=== PATIENT | male | born 1995 | race Two or more races ===

== ENCOUNTER 2024-02-16 14:26 | Observation (INO) ==
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
[2024-02-16 16:15] LABS: Basophils # (auto) 0.02 K/uL (0.00-0.20); Basophils % (auto) 0.4 %; Eosinophils # (auto) 0.18 K/uL (0.00-0.50); Eosinophils % (auto) 3.6 %; Hematocrit (blood only) 43.2 % (42.0-52.0); Hemoglobin 14.3 g/dl (14.0-18.0); Immature Granulocytes # (auto) 0.01 K/uL (0.01-0.20); Immature Granulocytes % (auto) 0.2 %; Lymphocytes # (auto) 1.57 K/uL (1.20-3.40); Lymphocytes % (auto) 31.3 %; Mean Corpuscular Hemoglobin 26.9 pg (25.0-34.0); Mean Corpuscular Hgb Conc 33.1 g/dL (32.0-36.0); Mean Corpuscular Volume 81.4 fL (80.0-100.0); Mean Platelet Volume 9.2 fL (9.4-12.4); Monocytes # (auto) 0.24 K/uL (0.11-0.59); Monocytes % (auto) 4.8 %; Neutrophils % (auto) 59.7 %; Platelet Count 263 K/uL (130-400); RDW Coefficient of Variation 13.2 % (11.5-14.5); Red Blood Count 5.31 M/uL (4.70-6.10); White Blood Count 5.02 K/ul (4.8-10.8)
[2024-02-16] MEDS: OPTIRAY 320 125ml IV ONE (16:21)
[2024-02-16 16:23] LABS: Albumin Globulin Ratio 1.5 (0.9-2); Albumin Level 4.4 gm/dl (3.4-5.0); BUN Creatinine Ratio 10.1 (10-20); Bilirubin,Total 0.7 mg/dl (0.2-1.0); Calcium 9.2 mg/dl (8.6-10.3); Creatinine Clr Calc Pharmacy 152.6 ml/min; Globulin 2.9 gm/dl (2.5-4.0); Potassium 4.1 mmol/L (3.5-5.1); Total Protein 7.3 gm/dl (6.0-8.3)
[2024-02-16 16:32] LABS: Partial Thromboplastin Ratio 1.1; Partial Thromboplastin Time 30 Seconds (21-31); Prothrombin Time 10.5 Seconds (9.0-12.0)
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
[2024-02-16] MEDS: GADOBUTROL 65ML VIAL IV ONE (20:50)
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
[2024-02-16] MEDS: OFLOXACIN 0.3% 75 DROPS/5 ML BTL OTR STA (22:39)
[2024-02-17] MEDS: ACETAMINOPHEN 325 MG TAB PO PRN (00:01)
--- NOTE | 2024-02-17 00:22 | Magnetic Resonance Report ---
Exam(s): MRI HEAD W/WO Contrast IV Amt: 10.5cc gadavist administered EXAM: MR Head Without and With Intravenous Contrast CLINICAL HISTORY: Reason for exam: R sided head pain, dizziness, head injury 01/06/24. TECHNIQUE: Magnetic resonance images of the head/brain without and with intravenous contrast in multiple planes. CONTRAST: Patient received 10.5cc gadavist administered of IV contrast COMPARISON: No relevant prior studies available. FINDINGS: This study is limited secondary to motion artifact. Brain: Unremarkable. No mass. No hemorrhage. No acute infarct. The flow voids at the base of the brain are intact. No evidence of abnormal enhancement. The dural venous sinuses are patent. Ventricles: Unremarkable. No ventriculomegaly. Bones/joints: Unremarkable. No acute fracture. Sinuses: Chronic maxillary and right ethmoid sinusitis. No acute sinusitis. Mastoid air cells: Unremarkable as visualized. No mastoid effusion. Orbits: Unremarkable as visualized. IMPRESSION: No evidence of acute intracranial pathology. Electronically signed by: Mohini Flaherty MD 02/17/24 00:21 AM
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
[2024-02-17] MEDS: CIPRO 0.3%/DEXAMETHASONE 0.1% OTIC SUSP 7.5ML OTR SCH (08:05)
[2024-02-17] MEDS ORDERED: CIPRO 0.3%/DEXAMETHASONE 0.1% OTIC SUSP 7.5ML OT SCH (09:00)
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
[2024-02-17 11:43] VITALS: PULSE 55; RESP 16; TEMP 98.2; O2SAT 94
[2024-02-17 12:17] LABS: iSTAT Creatinine 0.9 mg/dl (0.6-1.3); iSTAT Hemoglobin 14.3 g/dl (14.0-18.0); iSTAT Ionized Calcium 1.26 mmol/l (1.12-1.32); iSTAT Potassium 4.1 mmol/L (3.3-5.0)
[2024-02-17 12:38] VITALS: BP 102/77
[2024-02-17] MEDS: MECLIZINE HCL 25 MG TAB PO PRN (12:44)
[2024-02-17] MEDS ORDERED: DOXEPIN HCL 25 MG CAPSULE PO SCH (21:00)
== END 2024-02-17 14:45 ==
LOC: EDBD → ED 14:26 → EDINP 14:26 → SUATTDRO 21:59 → 2E 22:39